=== PATIENT | male | born 1945 ===

== ENCOUNTER 2017-01-15 09:47 | Inpatient (IN) | payer MEDICARE ==
[2017-01-15 09:47] VITALS: BMI 29.8
--- NOTE | 2017-01-15 10:46 | RAD ---
PROCEDURE: CHEST RADIOGRAPH, 1 VIEW HISTORY: chest pain COMPARISON: Comparison chest 05/29/2016 FINDINGS: LUNGS: Poor inspiration with low lung volumes, crowded bronchovascular markings and mild bibasilar atelectasis left greater than right. Questionable small left-sided effusion Interval improvement diffuse bilateral infiltrates (pneumonia and or CHF). PLEURA: As above. No evidence of pneumothorax CARDIOVASCULAR: Sternotomy wires and CABG clips again noted. Heart remains enlarged. OSSEOUS STRUCTURES: No significant abnormalities. VISUALIZED UPPER ABDOMEN: Normal. OTHER FINDINGS: None. IMPRESSION: Poor inspiration with low lung volumes, crowded bronchovascular markings and mild bibasilar atelectasis left greater than right. Questionable small left-sided effusion Interval improvement diffuse bilateral infiltrates (pneumonia and or CHF). Cardiomegaly.
[2017-01-15 10:48] LABS: BASO # 0.1 K/uL (0.0-0.2); BASO % 1.4 % (0.0-2.0); EOS # 0.3 K/uL (0.0-0.7); EOS % 6.9 % (0.0-4.0); HEMATOCRIT 36.1 % (35.0-51.0); LYMPH # 1.7 K/uL (1.0-4.3); LYMPH % 33.7 % (20.0-40.0); MEAN CELL VOLUME 86.8 fL (80.0-94.0); MEAN CORPUSCULAR HEMOGLOBIN 29.2 pg (27.0-31.0); MEAN CORPUSCULAR HGB CONC 33.7 g/dL (33.0-37.0); MEAN PLATELET VOLUME 8.8 fL (7.2-11.7); MONO # 0.4 K/uL (0.0-0.8); MONO % 7.1 % (0.0-10.0); NRBC % 0.1 % (0.0-2.0); RED CELL DISTRIBUTION WIDTH 14.2 % (11.5-14.5)
[2017-01-15 11:03] LABS: ALB/GLOB RATIO 1.5 (1.0-2.1); BILIRUBIN,TOTAL 0.6 mg/dL (0.2-1.3); CALCIUM 9.2 mg/dl (8.6-10.4); POTASSIUM 4.8 mmol/L (3.6-5.2); TOTAL PROTEIN 6.8 g/dL (6.3-8.3)
--- NOTE | 2017-01-15 11:06 | C.PDOC ---
History Of Present Illness 71 y/o male, with PMHx of CAD, s/p CABG 2 months ago, is brought to ED by ambulance for evaluation of near syncope. Pt states that he was standing outside when he suddenly felt lightheaded, began to see "black dots", and and felt as if he will pass out. Pt states that he has had several episodes of lightheadedness when walking around his home over the last week. (+)chills (+) nausea. Pt notes that he later sat down, and suddenly felt urge to defecate, and states he had "bad diarrhea". Otherwise, denies any vomiting, abdominal pain , back pain, headache, weakness, numbness, chest pain, shortness of breath, fever, or any other complaints at this time. Time Seen by Provider: 01/15/17 10:12 Chief Complaint (Nursing): Syncope History Per: Patient History/Exam Limitations: no limitations Onset/Duration Of Symptoms: Hrs, Sudden Onset Current Symptoms Are (Timing): Still Present Activity At Onset Of Symptoms: Standing Severity: None Pain Scale Rating Of: 0 Recent travel outside of the [place]: No Additional History Per: Patient - Symptoms Of CVA Associated Symptoms: denies: Impaired Speech, Seizure Activity, Decreased Ability To Walk, New Confusion Past Medical History Reviewed: Historical Data, Nursing Documentation, Vital Signs Vital Signs: Last Vital Signs Temp 98 F 01/15/17 15:37 Pulse 60 01/15/17 16:17 Resp 18 01/15/17 15:37 BP 126/83 01/15/17 17:14 Pulse Ox 100 01/15/17 15:37 - Medical History PMH: CHF, HTN - [facility] Procedures INSERTION OF ENDOTRACHEAL AIRWAY INTO TRACHEA, VIA OPENING (05/29/16) PLICATION OF VENA CAVA (09/27/14) RESPIRATORY VENTILATION, LESS THAN 24 CONSECUTIVE HOURS (05/29/16) Family History: States: Unknown Family Hx - Social History Hx Tobacco Use: No Hx Alcohol Use: No Hx Substance Use: No - Immunization History Hx Tetanus Toxoid Vaccination: No Hx Influenza Vaccination: No Hx Pneumococcal Vaccination: No Review Of Systems Constitutional: Positive for: Chills. Negative for: Fever Cardiovascular: Positive for: Light Headedness. Negative for: Chest Pain, Palpitations, Edema Respiratory: Negative for: Cough, Shortness of Breath Gastrointestinal: Positive for: Nausea, Diarrhea. Negative for: Vomiting, Abdominal Pain, Constipation Musculoskeletal: Negative for: Neck Pain, Back Pain Skin: Negative for: Rash, Bruising Neurological: Negative for: Weakness, Numbness, Change in Speech, Confusion, Headache, Dizziness Physical Exam - Physical Exam Appears: Non-toxic, No Acute Distress Skin: Warm, Dry, Pale Head: Atraumatic, Normacephalic Eye(s): bilateral: Normal Inspection, PERRL, EOMI Oral Mucosa: Moist Neck: Normal ROM, Supple Chest: Symmetrical, No Deformity, No Tenderness, Other (CABG scar to chest) Cardiovascular: Murmur Respiratory: No Accessory Muscle Use, No Rales, No Rhonchi, No Wheezing Gastrointestinal/Abdominal: Soft, No Tenderness, No Guarding, No Rebound Back: No CVA Tenderness Extremity: Normal ROM, No Pedal Edema Neurological/Psych: Oriented x3, Normal Speech, Normal Cognition, Normal Motor, Normal Sensation, No Other (no focal deficits) Gait: Steady ED Course And Treatment - Laboratory Results Result Diagrams: 01/15/17 10:41 01/15/17 10:41 ECG: Interpreted By Me, Viewed By Me ECG Rhythm: Sinus Bradycardia Interpretation Of ECG: Sinus bradycardia with rate 56bpm. First degree AV block. ST &T wave abnormality. Rate From EC O2 Sat by Pulse Oximetry: 99 Medical Decision Making Medical Decision Making: EKG, CXR, blood work, UA ordered and reviewed. discussed with Dr Concepcion, will admit to his service, telemetry. EKG changes from prior 05/29/16. Disposition Discussed With .: Sid Concepcion Doctor Will See Patient In The: Hospital - Disposition Disposition: HOSPITALIZED Disposition Time: 11:08 Condition: SERIOUS - Clinical Impression Clinical Impression: Near syncope, Acute electrocardiogram changes, Bradycardia - PA / CHARGE OPERATOR / Resident Statement MD/DO has reviewed & agrees with the documentation as recorded. - Scribe Statement The provider has reviewed the documentation as recorded by the Gabriellaibevgeny Huizar All medical record entries made by the Scribe were at my direction and personally dictated by me. I have reviewed the chart and agree that the record accurately reflects my personal performance of the history, physical exam, medical decision making, and the department course for this patient. I have also personally directed, reviewed, and agree with the discharge instructions and disposition. Decision To Admit - Pt Status Changed To: Hospital Disposition Of: Inpatient - Admit Certification Admit to Inpatient:: After my assessment, the patient will require hospitalization for at least two midnights. This is because of the severity of symptoms shown, intensity of services needed, and/or the medical risk in this patient being treated as an outpatient. - InPatient: Physician Admission Certification: I certify that this patient requires 2 or more midnights of care for the following reason:: pt with hx cad. s/p recent cabg, with near syncope today and several times this week, with acute ekg changes, for further cardiac eval - . Bed Request Type: Telemetry Patient Diagnosis: Near syncope, Acute electrocardiogram changes, Bradycardia
[2017-01-15 11:13] LABS: TROPONIN I 0.056 ng/mL (0.00-0.120)
[2017-01-15 14:26] LABS: INR 1.1
--- NOTE | 2017-01-15 14:28 | CP.PCM.PN ---
Subjective - Date & Time of Evaluation Date of Evaluation: 01/15/17 Time of Evaluation: 14:24 - Subjective Subjective: Patient is a 71 year old male with PMHx HTN, HLD, CAD, CABG two months ago who presents to the ED with complaint of near syncope. Patient states that for the past week he has had multiple episodes where his vision goes black, he feels weak and breaks out into a sweat. Patient states he lays down when these episodes occur and they pass after 20 minutes. Patient states today he was at the [facility] at [facility] [employer] when someone told him his face had gone pale and that he should sit down. Patient states he was diaphoretic and someone called an ambulance. Patient states that he had a large loose bowel movement in the ambulance but otherwise denies nausea, vomiting, or diarrhea. Patient states he takes 10 pills daily but cannot recall what they are or what they are for. Patient denies difficulty breathing or chest pain. PMD: [facility] PMHx: CAD, [place] x 3, HTN, HLD, BPH, asthma PSHx: CABG 2 months ago at [facility] [place], surgery to remove glass from his left thigh FamHx: denies Social Hx: denies tobacco, alcohol, drugs Objective - Vital Signs/Intake and Output Vital Signs (last 24 hours): Temp Pulse Resp BP Pulse Ox 97.5 F L 60 20 143/61 99 01/15/17 12:13 01/15/17 12:22 01/15/17 12:13 01/15/17 12:13 01/15/17 13:44 - Medications Medications: Current Medications Albuterol (Ventolin Hfa 90 Mcg/Actuation (8 G)) 1 puff INH RQ6 PRN PRN Reason: Shortness of Breath Aspirin (Aspirin Chewable) 81 mg PO DAILY [facility] Furosemide (Lasix) 20 mg PO DAILY [facility] Pantoprazole Sodium (Protonix Ec Tab) 40 mg PO DAILY [facility] Rosuvastatin Calcium (Crestor) 20 mg PO HS [facility] Fluticasone/Salmeterol (Advair Diskus 250/50) 1 puff INH RQ12 [facility] Tamsulosin HCl (Flomax) 0.4 mg PO DAILY [facility] Warfarin Sodium (Coumadin) 6 mg PO 1800 [facility] Stop: 01/15/17 18:01 - Constitutional Appears: Non-toxic, No Acute Distress - Head Exam Head Exam: ATRAUMATIC, NORMOCEPHALIC - Eye Exam Eye Exam: EOMI - ENT Exam ENT Exam: Mucous Membranes Moist Additional comments: denture - Respiratory Exam Respiratory Exam: Clear to Ausculation Bilateral. absent: Respiratory Distress - Cardiovascular Exam Cardiovascular Exam: JVD, +S1, +S2 Additional comments: well-healed sternotomy scar - GI/Abdominal Exam GI & Abdominal Exam: Soft, Normal Bowel Sounds. absent: Tenderness - Extremities Exam Extremities Exam: Pedal Edema (trace). 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 Concepcion
--- NOTE | 2017-01-15 17:01 | CT ---
PROCEDURE: CT HEAD WITHOUT CONTRAST. HISTORY: near syncope COMPARISON: None available. TECHNIQUE: Axial computed tomography images were obtained through the head/brain without intravenous contrast. Radiation dose: Total exam DLP = 821.12 mGy-cm. This CT exam was performed using one or more of the following dose reduction techniques: Automated exposure control, adjustment of the mA and/or kV according to patient size, and/or use of iterative reconstruction technique. FINDINGS: HEMORRHAGE: No intracranial hemorrhage. BRAIN: No evidence of large acute infarct however there may be a few tiny infarct changes in the right superomedial basal ganglia, adjacent to to the posterolateral aspect right frontal horn region. No obvious parenchymal nor extra-axial mass or collection. Vascular calcifications are present. VENTRICLES: Mild to moderate generalized volume loss. No obstructive hydrocephalus CALVARIUM: Unremarkable. PARANASAL SINUSES: Unremarkable as visualized. No significant inflammatory changes. MASTOID AIR CELLS: Unremarkable as visualized. No inflammatory changes. OTHER FINDINGS: None. IMPRESSION: No acute intracranial hemorrhage or large acute infarct. Suspect a few tiny right basal ganglia lacunar type infarcts as above. Mild to moderate generalized volume loss.
[2017-01-15 22:07] LABS: URINE BILIRUBIN NEGATIVE (NEGATIVE); URINE BLOOD NEGATIVE (NEGATIVE); URINE COLOR Straw (YELLOW); URINE GLUCOSE (UA) NORMAL (Normal); URINE KETONE NEGATIVE (NEGATIVE); URINE LEUKOCYTE ESTERASE NEG Leu/uL (Negative); URINE PROTEIN NEGATIVE (NEGATIVE); URINE UROBILINOGEN NORMAL mg/dL (0.2-1.0)
[2017-01-16 06:41] LABS: BASO # 0.1 K/uL (0.0-0.2); BASO % 0.9 % (0.0-2.0); EOS # 0.4 K/uL (0.0-0.7); EOS % 7.3 % (0.0-4.0); HEMATOCRIT 37.2 % (35.0-51.0); LYMPH # 2.4 K/uL (1.0-4.3); LYMPH % 40.6 % (20.0-40.0); MEAN CELL VOLUME 86.5 fL (80.0-94.0); MEAN CORPUSCULAR HEMOGLOBIN 29.2 pg (27.0-31.0); MEAN CORPUSCULAR HGB CONC 33.7 g/dL (33.0-37.0); MEAN PLATELET VOLUME 8.3 fL (7.2-11.7); MONO # 0.5 K/uL (0.0-0.8); MONO % 7.9 % (0.0-10.0); NRBC % 0.1 % (0.0-2.0); RED CELL DISTRIBUTION WIDTH 14.1 % (11.5-14.5); WHITE BLOOD COUNT 5.8 K/uL (4.8-10.8)
[2017-01-16 06:47] LABS: POTASSIUM 5.1 mmol/L (3.6-5.2)
[2017-01-16 06:49] LABS: ALB/GLOB RATIO 1.7 (1.0-2.1); BILIRUBIN,TOTAL 0.4 mg/dL (0.2-1.3); TOTAL PROTEIN 6.3 g/dL (6.3-8.3)
[2017-01-16 06:50] LABS: CALCIUM 9.6 mg/dl (8.6-10.4)
[2017-01-16 07:18] LABS: THYROID STIMULATING HORMONE 1.44 mIU/L (0.46-4.68)
[2017-01-16] MEDS: Fluticasone-Salmeterol 250-50mcg Diskus INH SCH ×2 (07:57→21:13)
[2017-01-16] MEDS: Albuterol HFA 90 mcg/actuation (8 g) INH PRN (07:58)
[2017-01-16] MEDS: Pantoprazole 40 mg EC Tab PO SCH (10:15)
--- NOTE | 2017-01-16 13:07 | VASCLAB ---
PROCEDURE: HISTORY: Near syncope COMPARISON: None available. TECHNIQUE: Grayscale and duplex Doppler evaluation of the cervical carotid and vertebral arteries were performed. The common carotid, carotid bifurcations and cervical Internal Carotid Artery (ICA) and proximal External Carotid Artery (ECA) were evaluated. The vertebral arteries were evaluated for gross patency and flow direction. Report prepared by SONIA Jimenes FINDINGS: RIGHT CAROTID ARTERIES: 1. Common Carotid Artery: No significant focal plaque formation of the right common carotid artery. Maximum Peak Systolic velocity: 95 cm/sec: End-diastolic velocity 14 cm/sec. 2. Carotid Bifurcation: Calcific plaque formation. Maximum Peak Systolic velocity: 84 cm/sec: End-diastolic velocity 15 cm/sec. 3. Internal Carotid Artery: Plaque description: Calcific 3.1. Proximal Segment: Peak systolic velocity 267 cm/sec: End-diastolic velocity 41cm/sec - % stenosis 60-70% 3.2. Middle Segment: Peak systolic velocity 126 cm/sec: End-diastolic velocity 19 cm/sec - % stenosis 0-15% 3.3. Distal Segment: Peak systolic velocity 66 cm/sec: End-diastolic velocity 19 cm/sec - % stenosis 0-15% 4. External Carotid Artery: No significant focal plaque formation. Peak systolic velocity 162 cm/sec 5. ICA/CCA Ratio: 3.2 LEFT CAROTID ARTERIES: 1. Common Carotid Artery: No significant focal plaque formation of the left common carotid artery. Maximum Peak Systolic velocity: 122 cm/sec: End-diastolic velocity 17 cm/sec. 2. Carotid Bifurcation: plaque formation. Maximum Peak Systolic velocity: 93 cm/sec: End-diastolic velocity 0 cm/sec. 3. Internal Carotid Artery: Plaque description: 3.1. Proximal Segment: Peak systolic velocity 74 cm/sec: End-diastolic velocity 26 cm/sec - % stenosis 0-15% 3.2. Middle Segment: Peak systolic velocity 70 cm/sec: End-diastolic velocity 21 cm/sec - % stenosis 0-15% 3.3. Distal Segment: Peak systolic velocity 97 cm/sec: End-diastolic velocity 31 cm/sec - % stenosis 0-15% 4. External Carotid Artery: No significant focal plaque formation. Peak systolic velocity 116 cm/sec 5. ICA/CCA Ratio: 1.4 VERTEBRAL ARTERIES: 1. Right Vertebral Artery: The right vertebral artery flow direction is antegrade. 2. Left Vertebral Artery: Unable to visualize the left vertebral artery. OTHER FINDINGS: 1. Right Brachial Blood pressure: 130 mmHg. 2. Left Brachial Blood pressure: 120 mmHg. IMPRESSION: RIGHT: 60-70% stenosis of the right proximal internal carotid artery. LEFT: Duplex scan does not suggest hemodynamically significant stenosis of the left extracranial carotid arteries. Findings were reported by the nuclear technologist, to Zoila Costa at 3:42 p.m.
--- NOTE | 2017-01-16 13:41 | CP.PCM.PN ---
Subjective - Date & Time of Evaluation Date of Evaluation: 01/16/17 Time of Evaluation: 09:05 - Subjective Subjective: PGY2 medicine note for Dr. Concepcion: Patient seen and examined. Patient states he is feeling better today. Patient states he was receiving medication from mail-order pharmacy but is not sure of everything he was taking. Patient does report history of stroke in the past. Patient cannot recall rn patient care's name but states he has not been to see one since removal of the suture from his sternotomy. Objective - Vital Signs/Intake and Output Vital Signs (last 24 hours): Temp Pulse Resp BP Pulse Ox 98.3 F 56 L 18 127/81 99 01/16/17 07:20 01/16/17 08:09 01/16/17 07:20 01/16/17 10:16 01/16/17 07:20 Intake and Output: 01/16/17 01/16/17 06:59 18:59 Intake Total 300 Output Total 900 Balance -600 - Medications Medications: Current Medications Albuterol (Ventolin Hfa 90 Mcg/Actuation (8 G)) 1 puff INH RQ6 PRN PRN Reason: Shortness of Breath Last Admin: 01/16/17 07:58 Dose: 1 puff Aspirin (Aspirin Chewable) 81 mg PO DAILY [facility] Last Admin: 01/16/17 10:15 Dose: 81 mg Furosemide (Lasix) 20 mg PO DAILY [facility] Last Admin: 01/16/17 10:14 Dose: 20 mg Hydralazine HCl (Apresoline) 25 mg PO QID [facility] Last Admin: 01/16/17 10:15 Dose: 25 mg Metoprolol Tartrate (Lopressor) 25 mg PO BID [facility] Last Admin: 01/16/17 10:16 Dose: 25 mg Pantoprazole Sodium (Protonix Ec Tab) 40 mg PO DAILY [facility] Last Admin: 01/16/17 10:15 Dose: 40 mg Pneumococcal Polyvalent Vaccine (Pneumovax 23 Vaccine) 0.5 ml IM .ONCE ONE Stop: 01/17/17 10:01 Rosuvastatin Calcium (Crestor) 5 mg PO HS [facility] Last Admin: 01/15/17 21:14 Dose: 5 mg Fluticasone/Salmeterol (Advair Diskus 250/50) 1 puff INH RQ12 [facility] Last Admin: 09/15/17 07:57 Dose: 1 puff Tamsulosin HCl (Flomax) 0.4 mg PO DAILY [facility] Last Admin: 01/16/17 10:15 Dose: 0.4 mg - Labs Labs: 01/16/17 06:28 01/16/17 06:28 PT 11.7 SECONDS (9.7-12.2) 01/16/17 06:28 INR 1.0 01/16/17 06:28 APTT 27 SECONDS (21-34) 01/15/17 14:04 - Constitutional Appears: No Acute Distress - Head Exam Head Exam: ATRAUMATIC, NORMOCEPHALIC - Eye Exam Eye Exam: EOMI - ENT Exam ENT Exam: Mucous Membranes Moist - Respiratory Exam Respiratory Exam: Clear to Ausculation Bilateral. absent: Rales, Rhonchi, Wheezes - Cardiovascular Exam Cardiovascular Exam: +S1, +S2 Additional comments: well-healed sternotomy - GI/Abdominal Exam GI & Abdominal Exam: Soft, Normal Bowel Sounds. absent: Tenderness - Extremities Exam Extremities Exam: Pedal Edema (mild b/l) - Neurological Exam Neurological Exam: Alert, Awake - Psychiatric Exam Psychiatric exam: Normal Affect - Skin Skin Exam: Dry, Warm Assessment and Plan - Assessment and Plan (Free Text) Assessment: Near Syncope patient noted to be bradycardic on panel monitor, will hold beta blockers and monitor will check echo patient reports history [address] head: no evidence of large acute infarct however there may be a few tiny infarct changes in the right superomedial basal ganglia, adjacent to the posterolateral aspect right frontal horn region. mild to moderate generalized volume loss. will check MRI brain, without contrast due to GFR check carotid ultrasound- prelim report- moderate disease on Right side troponins negative x 3 repeat EKG with first degree AV block, sinus bradycardia patient noted to be bradycardic on telemetry, HR 48-60 orthostatic vital signs: lying 126/83, sitting 124/ 62, standing 129/68 physical therapy evaluation TSH 1.44 Free T4 0.88 Hgb A1c 6.1 Renal insufficiency likely chronic, with acute component Creatinine in 2014: 1.1-1.2 on this admission, initially creatinine 2.3 improving, today is 1.7 will continue to monitor CAD s/p CABG patient has not followed with rn patient care since CABG continue aspirin 81mg daily 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 IVC filter placed by Dr. Phelan Patient started on coumadin at that time continue coumadin 6mg HS Hx CHF continue hydralazine continue lasix 20mg daily Hx Gout holding allopurinol due to interaction with coumadin Hx BPH continue flomax 0.4mg daily Hx HTN holding home medication metoprolol 25mg due to bradycardia continue hydralazine HLD due to elevated creatinine, crestor renally dosed at 5mg HS lipid panel: triglycerides 117, cholesterol 119, LDL 68, HDL 36 Prophylactic measure fall risk protocol protonix 40mg daily patient on coumadin- follow up INR daily All medical management as per Dr. Concepcion
--- NOTE | 2017-01-16 14:49 | MRI ---
PROCEDURE: MRI BRAIN WITHOUT CONTRAST HISTORY: infarct on CT COMPARISON: Head CT 01/15/2017. TECHNIQUE: Multiplanar, multisequence MR images of the brain were obtained without intravenous contrast enhancement. FINDINGS: HEMORRHAGE: None DWI: No evidence of an acute or early subacute infarction. BRAIN PARENCHYMA: There is mild expansion of the ventricular sulcal and cisternal spaces primarily throughout the cerebrum. Trace chronic microangiopathy is manifest by subcortical and centrum semiovale limited white-matter changes. Nevertheless, no mass effect is identified and there is no suspicious extra-axial fluid collection identified. Midline brain and appears normal. VENTRICLES: Unremarkable. No hydrocephalus. CRANIUM: Unremarkable. ORBITS: Grossly unremarkable. PARANASAL SINUSES/MASTOIDS: Mild left mastoid effusions incidentally noted. VASCULAR SYSTEM: Skull base flow voids intact. OTHER FINDINGS: None. IMPRESSION: Age-related neuro degenerative findings are reiterated in this brain MRI without contrast. No definite acute intracranial findings, including brain infarction.
[2017-01-17 07:26] LABS: BASO % 0.8 % (0.0-2.0); EOS # 0.4 K/uL (0.0-0.7); EOS % 8.3 % (0.0-4.0); HEMATOCRIT 38.5 % (35.0-51.0); LYMPH # 2.3 K/uL (1.0-4.3); LYMPH % 43.2 % (20.0-40.0); MEAN CELL VOLUME 86.4 fL (80.0-94.0); MEAN CORPUSCULAR HGB CONC 33.5 g/dL (33.0-37.0); MEAN PLATELET VOLUME 8.6 fL (7.2-11.7); MONO # 0.4 K/uL (0.0-0.8); MONO % 7.8 % (0.0-10.0); RED CELL DISTRIBUTION WIDTH 14.3 % (11.5-14.5); WHITE BLOOD COUNT 5.3 K/uL (4.8-10.8)
[2017-01-17 07:40] LABS: CHLORIDE 104 mmol/L (98-107)
[2017-01-17 07:41] LABS: POTASSIUM 5.3 mmol/L (3.6-5.2); SODIUM 140 mmol/L (132-148)
[2017-01-17 07:43] LABS: ALB/GLOB RATIO 1.5 (1.0-2.1); AST/SGOT 27 U/L (17-59); BILIRUBIN,TOTAL 0.5 mg/dL (0.2-1.3); BLOOD UREA NITROGEN 33 mg/dL (9-20); CARBON DIOXIDE 25 mmol/L (22-30); GFR AFRICAN-AMERICAN > 60; TOTAL PROTEIN 7.3 g/dL (6.3-8.3)
[2017-01-17 07:44] LABS: ALKALINE PHOSPHATASE 81 U/L (38-126); ALT/SGPT 35 U/L (21-72); CALCIUM 9.4 mg/dl (8.6-10.4); GLUCOSE,RANDOM 96 mg/dL (75-110)
[2017-01-17] MEDS: Fluticasone-Salmeterol 250-50mcg Diskus INH SCH (07:58)
[2017-01-17] MEDS: Albuterol HFA 90 mcg/actuation (8 g) INH PRN (07:59)
[2017-01-17 08:10] VITALS: PULSE 65
[2017-01-17 08:45] VITALS: RESP 18; TEMP 97.7; O2SAT 97
[2017-01-17] MEDS: Pantoprazole 40 mg EC Tab PO SCH (09:18)
[2017-01-17 09:20] VITALS: BP 126/71
[2017-01-17] MEDS ORDERED: Pneumococcal 23-Valent Vaccine IM ONE (10:00)
[2017-01-17] MEDS ORDERED: Sod Polystyrene Sulf 15 gm/60 ml Oral Susp PO ONE (11:30)
--- NOTE | 2017-01-17 14:09 | CARD ---
APPROVED REPORT EXAM: Two-dimensional and M-mode echocardiogram with Doppler and color Doppler. INDICATION Dizziness and Vertigo CAD Mitral Valve Disease Congestive Heart Failure Non STEMI Renal failure/ Mitral Valve Repair 2D DIMENSIONS IVSd1.8 (0.7-1.1cm)LVDd3.9 (3.9-5.9cm) PWd1.4 (0.7-1.1cm)LVDs3.0 (2.5-4.0cm) FS (%) 24.5 %LVEF (%)55.0 (>50%) M-Mode DIMENSIONS Left Atrium (MM)4.47 (2.5-4.0cm)IVSd1.81 (0.7-1.1cm) Aortic Root3.59 (2.2-3.7cm)LVDd4.90 (4.0-5.6cm) Aortic Cusp Exc.2.32 (1.5-2.0cm)PWd1.16 (0.7-1.1cm) FS (%) 39 %LVDs2.97 (2.0-3.8cm) LVEF (%)55 (>50%) Mitral Valve MV E Qnfsedly837.8cm/sMV E Peak Gr.19mmHgMV A Enwfcrxm659.5cm/s MV E Mean Gr.9mmHgE/A ratio0.9 TDI E/Lateral E'0.0E/Medial E'0.0 Tricuspid Valve TR Peak [id number]/sTR Peak Gr.75bzWzDETN70btRg LEFT VENTRICLE The left ventricle is normal size. There is mild concentric left ventricular hypertrophy. Left ventricle systolic function is normal. The Ejection Fraction is 50-55%. There is normal LV segmental wall motion. Tissue Doppler imaging reveals abnormal left ventricular diastolic dysfunction. No left ventricle thrombus noted on this study. RIGHT VENTRICLE The right ventricle is normal size. There is normal right ventricular wall thickness. The right ventricular systolic function is normal. ATRIA The left atrium is mildly dilated. The right atrium size is normal. The interatrial septum is intact with no evidence for an atrial septal defect. AORTIC VALVE The aortic valve is normal in structure. There is trace aortic regurgitation. There is no aortic valvular stenosis. There is no aortic valvular vegetation. MITRAL VALVE Mitral annular calcification is mild to moderate. There is no evidence of mitral valve prolapse. There is no mitral valve stenosis. There is no mitral valve regurgitation noted. TRICUSPID VALVE The tricuspid valve is normal in structure. There is mild to moderate tricuspid regurgitation. Right ventricular systolic pressure is estimated at 30-40 mmHg. There is mild pulmonary hypertension. PULMONIC VALVE The pulmonic valve is not well visualized. There is no pulmonic valvular regurgitation. GREAT VESSELS The aortic root is normal in size. PERICARDIAL EFFUSION There is no significant pericardial effusion. <Conclusion> Left ventricle systolic function is normal. The Ejection Fraction is 50-55%. Hypertensive heart disease.. Diastolic dysfunction. There is trace aortic regurgitation. Mitral annular calcification is mild to moderate. There is no mitral valve regurgitation noted. There is mild to moderate tricuspid regurgitation. There is mild pulmonary hypertension. There is no pulmonic valvular regurgitation.
--- NOTE | 2017-01-17 17:32 | CP.PCM.PN ---
Subjective - Date & Time of Evaluation Date of Evaluation: 01/17/17 Time of Evaluation: 11:00 - Subjective Subjective: Awake, alert, no acute distress. Objective - Vital Signs/Intake and Output Vital Signs (last 24 hours): Temp Pulse Resp BP Pulse Ox 97.7 F 65 18 126/71 97 01/17/17 07:20 01/17/17 07:30 01/17/17 07:20 01/17/17 09:19 01/17/17 07:20 Intake and Output: 01/17/17 01/17/17 06:59 18:59 Output Total 200 Balance -200 - Labs Labs: 01/17/17 07:09 01/17/17 07:09 PT 11.1 SECONDS (9.7-12.2) 01/17/17 07:09 INR 1.0 01/17/17 07:09 APTT 30 SECONDS (21-34) 01/17/17 07:09 Assessment and Plan - Assessment and Plan (Free Text) Assessment: Patient admitted with syncope, seen and examined. Denies sob or chest pains. Alert, awake, no distress. Seen by DR Concepcion, cleared for discharge home today. Advised to follow up in the office in 1 week.
--- NOTE | 2017-01-18 04:31 | DS ---
The patient is a 71-year-old female with congestive heart failure now with chief complaint of shortness of breath, near syncope. The patient beta-luc was stopped and workup done and no evidence of acute stroke. The patient will be discharged to follow up as an outpatient to follow up PT/INR. Sid Concepcion MD
--- NOTE | 2017-01-18 10:25 | CARD ---
APPROVED REPORT EKG Measurement Heart [id number] <Conclusion> Sinus bradycardia with 1st degree AV block Inferior infarct, age undetermined Abnormal ECG
--- NOTE | 2017-01-18 10:25 | CARD ---
APPROVED REPORT EKG Measurement Heart [id number] <Conclusion> Sinus bradycardia with 1st degree AV block Inferior infarct, age undetermined ST & T wave abnormality, consider lateral ischemia Abnormal ECG
== END 2017-01-17 14:26 | disposition home or self-care (01) | DRG 312 ==
LOC: C.ER 09:47 → C.9E 11:06 → C.6T 11:40
PROVIDERS: ADMIT Internal Medicine Pulmonary Disease; ATTEND Internal Medicine Pulmonary Disease
DX: R55 Syncope and collapse (principal); I11.0 Hypertensive heart disease with heart failure; I50.9 Heart failure, unspecified; I25.10 Atherosclerotic heart disease of native coronary artery without angina pectoris; I44.0 Atrioventricular block, first degree; J45.909 Unspecified asthma, uncomplicated; N28.9 Disorder of kidney and ureter, unspecified; N40.0 Benign prostatic hyperplasia without lower urinary tract symptoms; M10.9 Gout, unspecified; E78.5 Hyperlipidemia, unspecified; Z79.01 Long term (current) use of anticoagulants; I25.2 Old myocardial infarction; Z79.82 Long term (current) use of aspirin; Z86.718 Personal history of other venous thrombosis and embolism; Z86.73 Personal history of transient ischemic attack (TIA), and cerebral infarction without residual deficits; Z95.1 Presence of aortocoronary bypass graft